=== PATIENT | female | born 1990 | race Two or more races ===

== ENCOUNTER 2021-09-17 23:59 | Emergency (ER) | payer OTHER ==
[2021-09-18 00:22] VITALS: BP 141/94; PULSE 87; TEMP 98.5; BMI 21.7
[2021-09-18] MEDS ORDERED: KETOROLAC TROMETHAMINE 30 MG/1 ML VIAL IM ONE (00:25)
[2021-09-18] MEDS ORDERED: KETOROLAC TROMETHAMINE 30 MG/1 ML VIAL ONE (00:32)
== END 2021-09-18 01:39 | disposition home or self-care (01) ==
LOC: JER 23:59
PROC: 3E023GC Introduction of Other Therapeutic Substance into Muscle, Percutaneous Approach (ICD-10-PCS; principal; 2021-09-17)
DX: S42.401A Unspecified fracture of lower end of right humerus, initial encounter for closed fracture (principal); W19.XXXA Unspecified fall, initial encounter
CPT/HCPCS: 73030-TC-RT-FY; 73070-TC-RT-FY; 73090-TC-RT-FY; 99284-25